=== PATIENT | male | born 1960 | race Caucasian/White ===

== ENCOUNTER 2018-09-01 10:35 | Emergency (ER) | payer OTHER | END 2018-09-01 12:10 | disposition home or self-care (01) | LOC: FTE 10:35 | DX: L02.414 Cutaneous abscess of left upper limb (principal) | CPT/HCPCS: 99283; Z7502 ==

== ENCOUNTER 2018-09-04 05:44 | Emergency (ER) | payer OTHER ==
[2018-09-04] MEDS: LIDOCAINE 1% (MDV) 20 ML INJ SC (06:29)
== END 2018-09-04 07:30 | disposition home or self-care (01) ==
LOC: FTE 05:44
DX: L02.212 Cutaneous abscess of back [any part, except buttock and flank] (principal); I10 Essential (primary) hypertension
CPT/HCPCS: 10060; 99283-25

== ENCOUNTER 2018-09-06 06:02 | Emergency (ER) | payer OTHER | END 2018-09-06 07:17 | disposition home or self-care (01) | LOC: FTE 06:02 | DX: L02.212 Cutaneous abscess of back [any part, except buttock and flank] (principal); I10 Essential (primary) hypertension | CPT/HCPCS: 10060; 99282-25 ==